=== PATIENT | female | born 1975 | race Caucasian/White ===

== ENCOUNTER 2017-05-05 17:00 | Emergency (ER) | payer OTHER ==
[2017-05-05 17:10] VITALS: RESP 15; TEMP 98.1
[2017-05-05] MEDS ORDERED: ALPRAZolam 0.25 MG TAB PO ONE ×2 (17:28→18:31)
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
[2017-05-05 19:26] VITALS: BP 108/69; PULSE 77; O2SAT 97
== END 2017-05-05 19:12 | disposition home or self-care (01) ==
DX: S16.1XXA Strain of muscle, fascia and tendon at neck level, initial encounter (principal); V49.40XA Driver injured in collision with unspecified motor vehicles in traffic accident, initial encounter; Y92.410 Unspecified street and highway as the place of occurrence of the external cause; Y99.8 Other external cause status; Y93.89 Activity, other specified